=== PATIENT | female | born 1985 | race Two or more races ===

== ENCOUNTER 2025-02-09 16:11 | Emergency (ER) | payer SELFPAY ==
[2025-02-09 16:19] VITALS: BP 155/94; PULSE 92; RESP 18; TEMP 36.8; O2SAT 99
--- NOTE | 2025-02-09 16:33 | EDNOTE_ITS ---
ED Abdominal Pain RME/HPI General Chief Complaint: Abdominal Pain Stated complaint: MEDICAL CLEARANCE Time seen by provider: 02/09/25 16:16 Arrival date/time: 02/09/25 16:11 39-year-old female patient was brought in by law enforcement for medical clearance. Patient told me that she was diagnosed with a right inguinal hernia for several months, already saw her PCP and awaiting surgery. Patient currently is denying any inguinal pain. Patient is not vomiting no abdominal pain. Patient not having any fever. No dysuria no other complaints noted. Patient is ambulatory. Related Data Allergies Allergy/AdvReac Type Severity Reaction Status Date / Time No Known Allergies Allergy Verified 02/09/25 16:17 Review of Systems Review of Systems Narrative Review of Systems: Review of system reviewed and within normal limits except mentioned in HPI ED Exam Narrative Physical exam: VITAL SIGNS: Reviewed. GENERAL APPEARANCE: Alert and interactive, follows commands, no acute distress, HEAD AND FACE: Non-traumatic. ENT: PERRL, pink conjunctivitis, eyelid no trauma, Mucous membrane moist. NECK: Supple, nontender, no nuchal rigidity. CHEST: No tenderness, no crepitus, no paradoxical movement, no retractions. LUNGS: Clear, well ventilated, symmetric, no rales, no wheezing, no ronchi, no stridor, good breath sounds bilaterally. HEART: Regular rate, regular rhythm, no murmur, no gallops. ABDOMEN: Soft, positive bowel sounds, nondistended, no guarding, nontender, no rebound, no masses, RECTAL: Deferred. GENITAL: Positive reducible nontender inguinal hernia noted on the right no redness noted NEUROLOGICAL: Gross motor function intact sensory function intact, Appropriate for age. MUSCULOSKELETAL: low back nontender, full range of motion. EXTREMITIES: Nontender, full range of motion. SKIN: Color pink, dry, no rash, no lacerations, no abrasions, no contusions. LYMPHATICS: Deferred. Course Quality Measures none Vital Signs Vital signs: Vital Signs Temperature 98.3 F 02/09/25 16:19 Pulse Rate 92 02/09/25 16:19 Respiratory Rate 18 02/09/25 16:19 Blood Pressure 155/94 H 02/09/25 16:19 Pulse Oximetry (%) 99 02/09/25 16:19 Oxygen Delivery Method Room Air 02/09/25 16:19 Abdominal Pain MDM MDM Narrative MDM Narrative:: 39-year-old female patient was brought in by law enforcement for medical clearance. Patient told me that she was diagnosed with a right inguinal hernia for several months, already saw her PCP and awaiting surgery. Patient currently is denying any inguinal pain. Patient is not vomiting no abdominal pain. Patient not having any fever. No dysuria no other complaints noted. Patient is ambulatory. Patient is having a symptomatic reducible inguinal hernia on the right, patient is not having any vomiting no abdominal pain no fever no inguinal pain. Inguinal hernia is still reducible. Patient is awaiting surgery. Patient does not need imaging at this time Patient is medically cleared. Patient data External records reviewed:: None Clinical information provided by:: patient Social determinants that could affect healthcare access:: none Patient has the following chronic illnesses:: Right inguinal hernia How is presenting disease/condition affected by chronic disease/condition?: caused by Evaluation data The following diagnostics were reviewed and interpreted by me:: other (specify) (None) Lab and/or radiology exams considered but not ordered:: None Interpretation Summary: None Medications / Prescriptions Medications or Prescriptions considered but not ordered:: None none Medication administrations:: None Consultations Consultation(s) initiated? (list below): No Diagnosis Differential diagnosis abdominal pain: pancreatitis (Medical clearance, asymptomatic right inguinal hernia) Most likely diagnosis given after review of the tests above:: Medical clearance for incarceration, asymptomatic right reducible inguinal hernia Admission Indicated Admission indicated?: not indicated Admission Request Was there a request for admission?: No Disposition Plan Disposition Plan: Discharge Discharge Attestation Discharge Attestation: The patient was given an opportunity to ask questions and understood the discharge instructions. Discharge instructions specifically effects, indications for sooner follow up or return to the emergency department, and the expected course of current diagnosis. Patient condition: Stable Discharge Plan Plan Patient Disposition: HOME (Self Care) Discharge Disposition comment: Stable Problem List Clinical Impression: Reducible right inguinal hernia, Medical clearance for incarceration Patient/Caregiver Discharge Instructions Discharge Activity: activity as tolerated Education Materials: ED Hernia (Adult) Additional Instructions: Thank you for the opportunity for serving you today. You are stable for discharged . You are advised to: Follow-up with your PCP in 1 to 2 days once you get out of alf Return to ED for worsening of symptoms You do not need emergency imaging or surgery at this time you need to follow-up with your PCP and ask for referral to general surgeon for elective surgery of your inguinal hernia if desired. Your hernia is not bothering you at this time. There is no sign of incarceration. Print Language: Faroese Stand Alone Forms: Kristin Award Info., Patient Portal Info Letter PA/HOTEL SERVICE MANAGER Supervising Physician JAVIER/HOTEL SERVICE MANAGER Supervising Physician: MD Shay
== END 2025-02-09 16:45 | disposition home or self-care (01) ==
PROVIDERS: Emergency Provider Family Medicine
DX: Z02.89 Encounter for other administrative examinations (principal); K40.90 Unilateral inguinal hernia, without obstruction or gangrene, not specified as recurrent
CPT/HCPCS: 99281